=== PATIENT | female | born 1955 | race Caucasian/White ===

== ENCOUNTER 2023-08-30 18:08 | Inpatient (IN) | payer OTHER ==
[~2023-08-30] VITALS: Ht 162.6 cm; Wt 111.3 kg
[2023-08-30 18:27] VITALS: BP_SYST 129; PULSE 69; RESP 16; TEMP 98.2; O2SAT 96
[2023-08-30] MEDS: ASPIRIN 81 MG TAB.CHEW PO ONE (19:22)
[2023-08-30] MEDS: NITROGLYCERIN 0.4 MG TAB.SUBL SL ONE (19:23)
[2023-08-30 19:37] LABS: ANION GAP 10 (5-15); CARBON DIOXIDE 26 mmol/L (23-29); CHLORIDE 105 mmol/L (98-107); CREATININE 0.52 mg/dL (0.55-1.30); FREE T4 (FREE THYROXINE) 0.9 ng/dl (0.8-1.5); GFR AFRICAN AMERICAN 151 mL/min (>90); GFR NON AFRICAN-AMERICAN 125 mL/min (>90); GLUCOSE 100 mg/dL (74-106); POTASSIUM 4.1 mmol/L (3.5-5.1); SODIUM SERUM 141 mmol/L (136-145); THYROID STIMULATING HORMONE 1.81 uIu/mL (0.36-3.74); UREA NITROGEN, BLOOD 13 mg/dL (8-21)
[2023-08-30 21:33] LABS: LYMPHOCYTES % (AUTO) 28.4 % (20.5-51.5); MONOCYTES % (AUTO) 7.4 % (1.7-9.3); NEUTROPHILS % (AUTO) 59.4 % (40.0-70.0); PLATELET COUNT (AUTO) 201 K/uL (130-430); RED CELL DISTRIBUTION WIDTH 14.3 % (9.0-15.0)
[2023-08-30 21:34] LABS: BASOPHILS % (AUTO) 1.7 % (0.0-2.0); EOSINOPHILS % (AUTO) 3.1 % (0.0-4.0); HEMATOCRIT 32.5 % (36-48); HEMOGLOBIN 11.6 g/dL (12.0-16.0); MEAN CORPUSCULAR HEMOGLOBIN 38 pg (27-31); MEAN CORPUSCULAR HGB CONC 36 % (32-36); MEAN CORPUSCULAR VOLUME 107 fL (79.0-98.0); NEUTROPHILS # (AUTO) 3.6 K/uL (1.8-7.7); RED BLOOD CELL COUNT(AUTO) 3.03 MIL/uL (4.2-6.2)
[2023-08-30 21:35] LABS: BASOPHILS # (AUTO) 0.1 K/uL (0.0-0.2); EOSINOPHILS # (AUTO) 0.2 K/uL (0.0-0.4); LYMPHOCYTES # (AUTO) 1.7 K/uL (1.0-5.5); MONOCYTES # (AUTO) 0.4 K/uL (0.0-1.0)
[2023-08-30 22:36] LABS: ROULEAU 3+
[2023-08-30 22:37] LABS: TEAR DROP CELLS FEW
[2023-08-30] MEDS ORDERED: TURM1CAP2 PO (23:13)
[2023-08-30] MEDS ORDERED: ASCO500T20 PO (23:13)
[2023-08-30] MEDS ORDERED: VITD400 PO (23:13)
[2023-08-30] MEDS ORDERED: berberine PO (23:13)
[2023-08-30] MEDS ORDERED: OMEG-158 PO (23:13)
[2023-08-30] MEDS ORDERED: CYAN100010 PO (23:13)
[2023-08-31 00:54] VITALS: BP_SYST 144; PULSE 51; RESP 18; TEMP 97.7; O2SAT 97
[2023-08-31 04:05] VITALS: BP_SYST 143; PULSE 51; RESP 18; TEMP 97.1; O2SAT 96
[2023-08-31 08:00] VITALS: BP_SYST 135; PULSE 61; RESP 16; TEMP 96.2; O2SAT 95
[2023-08-31 08:01] VITALS: BP_SYST 119
[2023-08-31] MEDS ORDERED: HYDR12.585 PO (10:53)
[2023-08-31] MEDS ORDERED: LORazepam 2 MG/ML VIAL IVP PRN (11:00)
[2023-08-31] MEDS ORDERED: NALOXONE HCL 0.4 MG/ML AMP (NARCAN) IVP PRN ×2 (11:00)
[2023-08-31] MEDS ORDERED: HYDROcodone/ACETAMIN 10-325 MG TAB PO PRN (11:00)
[2023-08-31] MEDS ORDERED: HYDROcodone/ACETAMIN 5-325 MG TAB (NORCO/ VICODIN) PO PRN (11:00)
[2023-08-31] MEDS ORDERED: ONDANSETRON HCL 4 MG/2 ML VIAL IVP PRN (11:00)
[2023-08-31] MEDS ORDERED: ACETAMINOPHEN 325 MG TABLET PO PRN ×2 (11:15)
[2023-08-31 11:29] LABS: CALCIUM 9.3 mg/dL (8.4-11.0); CREATININE 0.54 mg/dL (0.55-1.30); POTASSIUM 3.9 mmol/L (3.5-5.1)
[2023-08-31] MEDS: CYANOCOBALAMIN (VITAMIN B-12) 1,000 MCG TABLET PO ONE (11:52)
[2023-08-31] MEDS: HYDROCHLOROTHIAZIDE 12.5 MG CAPSULE (HCTZ) PO ONE (11:52)
[2023-08-31] MEDS: ASCORBIC ACID 500 MG TABLET PO ONE (11:52)
[2023-08-31 12:00] VITALS: BP_SYST 135; PULSE 60; RESP 16; TEMP 97.2; O2SAT 96
[2023-08-31] MEDS ORDERED: NORMAL SALINE 5 ML DISP.SYRIN IVF SCH (14:00)
[2023-08-31 15:57] LABS: BASOPHILS % (AUTO) 0.3 % (0.0-2.0); EOSINOPHILS # (AUTO) 0.1 K/uL (0.0-0.4); EOSINOPHILS % (AUTO) 2.7 % (0.0-4.0); HEMATOCRIT 35.4 % (36-48); LYMPHOCYTES # (AUTO) 1.1 K/uL (1.0-5.5); LYMPHOCYTES % (AUTO) 21.6 % (20.5-51.5); MEAN CORPUSCULAR HEMOGLOBIN 34 pg (27-31); MEAN CORPUSCULAR HGB CONC 34 % (32-36); MEAN CORPUSCULAR VOLUME 100 fL (79.0-98.0); MONOCYTES # (AUTO) 0.4 K/uL (0.0-1.0); MONOCYTES % (AUTO) 7.7 % (1.7-9.3); NEUTROPHILS # (AUTO) 3.5 K/uL (1.8-7.7); NEUTROPHILS % (AUTO) 67.7 % (40.0-70.0); PLATELET COUNT (AUTO) 206 K/uL (130-430); RED BLOOD CELL COUNT(AUTO) 3.55 MIL/uL (4.2-6.2); RED CELL DISTRIBUTION WIDTH 14.1 % (9.0-15.0); WHITE BLOOD COUNT (AUTO) 5.2 K/uL (4.8-10.8)
[2023-08-31 16:15] LABS: ROULEAU 3+
[2023-08-31 17:15] VITALS: BP_SYST 136; PULSE 60; RESP 18; TEMP 97.4; O2SAT 95
[2023-08-31] MEDS ORDERED: OMEGA-3/DHA/EPA/FISH OIL 1 GM CAPSULE PO SCH (21:00)
[2023-09-01] MEDS ORDERED: CYANOCOBALAMIN (VITAMIN B-12) 1,000 MCG TABLET PO SCH (09:00)
[2023-09-01] MEDS ORDERED: ASCORBIC ACID 500 MG TABLET PO SCH (09:00)
[2023-09-01] MEDS ORDERED: HYDROCHLOROTHIAZIDE 12.5 MG CAPSULE (HCTZ) PO SCH (09:00)
== END 2023-08-31 18:00 | disposition home health service (06) | DRG 206 ==
LOC: SED 18:08 → STU 23:06
PROVIDERS: ADMIT Preventive Medicine Preventive Medicine/Occupational Environmental Medicine; ATTEND Preventive Medicine Preventive Medicine/Occupational Environmental Medicine
DX: M94.0 Chondrocostal junction syndrome [Tietze] (principal); Z68.41 Body mass index [BMI] 40.0-44.9, adult; R00.1 Bradycardia, unspecified; E66.01 Morbid (severe) obesity due to excess calories; I10 Essential (primary) hypertension; Z79.899 Other long term (current) drug therapy; D64.9 Anemia, unspecified; R73.03 Prediabetes
CPT/HCPCS: 36415; 71045; 80048; 80061; 83037; 83880; 84439; 84443; 84484; 85025; 93005; 93306; 99285; G0378